=== PATIENT | female | born 1980 | race Asian ===

== ENCOUNTER 2018-01-01 07:18 | Emergency (ER) | payer MEDICAID ==
[~2018-01-01] VITALS: Ht 165.1 cm; Wt 80.0 kg
[2018-01-01 07:21] VITALS: BP 127/79
[2018-01-01] MEDS ORDERED: CEPH500C5 PO (07:27)
[2018-01-01] MEDS ORDERED: LEVO750T21 PO (07:29)
== END 2018-01-01 07:30 | disposition home or self-care (01) ==
LOC: ER 07:19
DX: L03.115 Cellulitis of right lower limb (principal); Z79.899 Other long term (current) drug therapy
CPT/HCPCS: 99283

== ENCOUNTER 2018-05-16 00:27 | Emergency (ER) | payer MEDICAID ==
[~2018-05-16] VITALS: Ht 571.8 cm; Wt 80.3 kg
[~2018-05-16 00:27] MED LIST: CEPH500C5 PO
[2018-05-16 00:41] VITALS: BP 135/91
[2018-05-16] MEDS ORDERED: IBUP-1986 PO (02:05)
[2018-05-16] MEDS ORDERED: SULF1TAB49 PO (02:05)
[2018-05-16] MEDS ORDERED: HYDR-569 PO (02:05)
[2018-05-16] MEDS ORDERED: CEPH500C5 PO (02:05)
== END 2018-05-16 02:13 | disposition home or self-care (01) ==
LOC: ER 00:28
DX: N75.0 Cyst of Bartholin's gland (principal); F17.200 Nicotine dependence, unspecified, uncomplicated
CPT/HCPCS: 99283

== ENCOUNTER 2019-10-19 19:30 | Emergency (ER) | payer MEDICAID ==
[~2019-10-19] VITALS: Ht 165.1 cm; Wt 65.0 kg
[~2019-10-19 19:30] MED LIST changes: -CEPH500C5 PO; +HYDR-4383 PO; +IBUP-1986 PO
[2019-10-19 19:33] VITALS: BP 142/84
[2019-10-20] MEDS ORDERED: BACDS PO (14:12)
[2019-10-20] MEDS ORDERED: CEPH250T PO (14:12)
== END 2019-10-19 21:48 | disposition left against medical advice (07) ==
LOC: ER 19:30
DX: S61.451A Open bite of right hand, initial encounter (principal); Z53.21 Procedure and treatment not carried out due to patient leaving prior to being seen by health care provider; X58.XXXA Exposure to other specified factors, initial encounter; Y93.89 Activity, other specified; Y92.89 Other specified places as the place of occurrence of the external cause; Y99.8 Other external cause status

== ENCOUNTER 2019-10-20 11:55 | Emergency (ER) | payer MEDICAID ==
[~2019-10-20] VITALS: Ht 165.1 cm; Wt 78.0 kg
[~2019-10-20 11:55] MED LIST changes: +LIDOcaine 1% W/epiNEPHrine 1:100,000 20ml vial ONE
[2019-10-20 12:04] VITALS: BP 122/91
--- NOTE | 2019-10-20 13:39 | NUR ---
PT STATES SHE FEELS LIKE HER RIGHT ARM IS TINGLY AND FEELING LIKE IT'S ASLEEP, MD AWARE. PT C/O FEELING COLD, WARM BLANKET PROVIDED.
[2019-10-20] MEDS ORDERED: BACDS PO (14:12)
[2019-10-20] MEDS ORDERED: CEPH250T PO (14:12)
== END 2019-10-20 14:37 | disposition home or self-care (01) ==
LOC: ER 11:56
DX: L02.511 Cutaneous abscess of right hand (principal); Z79.899 Other long term (current) drug therapy
CPT/HCPCS: 10060; 99283

== ENCOUNTER 2019-10-20 20:05 | Emergency (ER) | payer MEDICAID ==
[~2019-10-20] VITALS: Ht 165.1 cm; Wt 65.9 kg
[~2019-10-20 20:05] MED LIST changes: +BACDS PO; +CEPH250T PO; -LIDOcaine 1% W/epiNEPHrine 1:100,000 20ml vial ONE
[2019-10-20 20:23] VITALS: BP 139/91
[2019-10-20] MEDS ORDERED: CefTRIAXone 1000mg IM Kit (w/lidocaine diluent) IM ONE (23:10)
== END 2019-10-21 00:02 | disposition home or self-care (01) ==
LOC: ER 20:06
DX: S60.561D Insect bite (nonvenomous) of right hand, subsequent encounter (principal); L03.113 Cellulitis of right upper limb; L02.511 Cutaneous abscess of right hand; W57.XXXD Bitten or stung by nonvenomous insect and other nonvenomous arthropods, subsequent encounter; Z79.899 Other long term (current) drug therapy
CPT/HCPCS: 96372; 99283; J0696

== ENCOUNTER 2024-12-25 00:45 | Inpatient (IN) | payer MEDICAID ==
[~2024-12-25] VITALS: Ht 170.2 cm; Wt 83.3 kg
[~2024-12-25 00:45] MED LIST changes: -BACDS PO; -CEPH250T PO
[2024-12-25 01:27] LABS: BASOPHILS # (AUTO) 0.1 X10'3 (0-0.2); BASOPHILS % (AUTO) 0.5 % (0-1); EOSINOPHILS # (AUTO) 0.1 X10'3 (0-0.9); EOSINOPHILS % (AUTO) 0.9 % (0-6); HEMATOCRIT 38.7 % (35.0-45.0); HEMOGLOBIN 12.9 g/dl (12.0-16.0); LYMPHOCYTES # (AUTO) 1.9 X10'3 (1.1-4.8); MEAN CORPUSCULAR HEMOGLOBIN 26.1 PG (27.0-31.0); MEAN CORPUSCULAR HGB CONC 33.4 g/dL (33.0-36.5); MEAN PLATELET VOLUME 8.4 FL (7.4-10.4); MONOCYTES # (AUTO) 1.2 X10'3 (0-0.9); MONOCYTES % (AUTO) 7.7 % (2-12); NEUTROPHILS # (AUTO) 12.4 X10'3 (1.8-7.7); NEUTROPHILS % (AUTO) 78.9 % (42-75); PLATELET COUNT 305 X10'3 (140-440); RED BLOOD COUNT 4.96 X10'6 (4.20-5.60); RED CELL DISTRIBUTION WIDTH 16.6 % (11.5-14.5); WHITE BLOOD COUNT 15.7 X10'3 (4.5-11.0)
[2024-12-25 01:29] LABS: BILIRUBIN,URINE NEGATIVE (Neg); CLARITY,URINE CLOUDY (Clear); COLOR,URINE YELLOW (Yellow); GLUCOSE, URINE NEGATIVE (Neg); KETONES,URINE NEGATIVE (Neg); LEUKOCYTE ESTERASE ,URINE MODERATE (Neg); NITRITES, URINE POSITIVE (Neg); OCCULT BLOOD,URINE SMALL (Neg); PROTEIN,URINE 30 mg/dl (Neg); URINE HCG POSITIVE (NEG); UROBILINOGEN,URINE 0.2 E.U/dL (0.2-1.0)
[2024-12-25 01:37] LABS: ALANINE AMINOTRANSFERASE 35 U/L (12-78); ALBUMIN 3.7 G/DL (3.4-5.0); ALKALINE PHOSPHATASE 102 IU/L (46-116); ANION GAP 9 (8-16); ASPARTATE AMINO TRANSFERASE 16 U/L (10-37); BILIRUBIN,TOTAL 0.7 MG/DL (0.1-1.0); BLOOD UREA NITROGEN 10 MG/DL (7-18); BUN/CREATININE RATIO 13.5 (10.0-20.0); CALCIUM 8.2 MG/DL (8.5-10.1); CHLORIDE 104 MMOL/L (99-107); CREATININE 0.74 MG/DL (0.40-0.90); GLUCOSE 112 MG/DL (70-104); LIPASE 23 U/L (16-77); SODIUM 138 MMOL/L (135-145); TOTAL CARBON DIOXIDE 24.7 MMOL/L (24-32); TOTAL PROTEIN 7.5 G/DL (6.4-8.2); eCRCL 96 ML/MIN; eGFR 86 ML/MIN
[2024-12-25 01:38] LABS: UA COLLECTION TYPE CLN CATCH MIDSTREAM
[2024-12-25 01:40] LABS: BACTERIA,URINE 4+ /HPF (Neg); WBC,URINE TNTC /HPF (0-4)
[2024-12-25 01:41] LABS: MUCUS STRANDS FEW /LPF (Neg); SQUAMOUS EPITHELIAL CELL,UR FEW /LPF (FEW)
[2024-12-25] MEDS: acetaminophen 325mg tablet PO ONE (02:43)
[2024-12-25] MEDS: potassium CL 10mEq/100ml bag 100 ML IV ONE (02:45)
[2024-12-25] MEDS: normal saline 1000ML IV soln IVB ONE ×2 (02:46)
[2024-12-25] MEDS: magnesium sulf-water 2g/50mL 50 ML IV ONE (02:50)
[2024-12-25] MEDS: CefTRIAXone 2gm/D5W 50ml BAG 50 ML IV ONE (02:51)
[2024-12-25] MEDS: potassium Cl 20 mEq SR tablet PO ONE (02:53)
--- NOTE | 2024-12-25 03:06 | Physician Documentation ---
History of Present Illness Chief Complaint: Abdominal Pain Stated Complaint: ABDOMINAL PAIN Time Seen by MD: 02:35 OK to notify your PCP?: Yes Primary Medical Doctor: [facility] Source: patient Mode of Arrival: POV Exam Limitations: no limitations HPI 44 year old female, who is nine weeks with history of A1, presents complaining of mid lower abdominal pain that began two days ago. Pain has been worsening over this time and is now radiating to the left lower back. Pain is now constant and described like a hard contraction. She denies any nausea, vomiting, or urinary symptoms. She does feel hot currently. [facility], but has not actually been seen by them for this . Last Menstrual Period: Oct 27, 2024 Medication Reconciliation Allergies: Coded Allergies: No Known Allergies (Unverified , 12/25/24) Scheduled Ibuprofen (Ibuprofen), 1 TAB PO Q8H Scheduled PRN Hydrocodone/Acetaminophen (Fernley 5-325 Tablet), 1-2 TAB PO Q4HPRN PRN for pain Past Medical History Past Medical History: No Pertinent History Past Surgical History: no surgical history Last Menstrual Period: Oct 27, 2024 Alcohol Use: None Drug Use: none Lives with: Family Lives In: Home Review of Systems All Other Systems at this time: Reviewed and Negative ROS As stated above in the HPI, otherwise all systems are reviewed and negative. Physical Exam Vital Signs: RN Vital Signs have been reviewed: Yes, Temperature: 97.2, Source: Temporal, Heart Rate: 126, Respiratory Rate: 16, BP: 142/90, Pulse Oximetry: 96, Weight: 83.300 Oxygen Flow Rate: 0 Pulse Oximetry Reflects: adequate oxygenation Physical Exam General: The patient is well developed, well nourished, nontoxic appearing and is in mild distress. Uncomfortable appearing. Skin: [place], warm and dry with no rashes. HEENT: Head was normocephalic and atraumatic. Chest: Clear to auscultation bilaterally without wheezes, rales or rhonchi. No accessory muscle use. No dullness to percussion. Heart: Rate regular and rhythmic. S1, S2. No murmurs. Palpation of the chest wall was normal. No rubs or thrills. Abdomen: Mid lower abdominal tenderness. Gravid abdomen. Soft. Positive bowel sounds. No guarding or rebound. Back: Left CVA TTP, no right CVA TTP. Extremities: No cyanosis, clubbing or edema. The patient moves all extremities. Pulses were equal and symmetric. Neurologic: Motor and sensation grossly intact. Cranial nerves II-XII grossly intact. A & O x4. Psychologic: Normal mood and affect. No agitation. Progress Progress Note 0415: Initiating transfer process to facility with OB services. 0430: Case relayed to [facility] transfer center. 0535: Case discussed with [facility] OBGYN who reports patient's is nonviable and she can be admitted to this facility. 0542: Case discussed with internal medicine resident, who will consult his attending and call back if there are any issues. 0555: Case discussed with Dr. Kahn, teleintensivist, who agrees to evaluate for admission to the hospitalist service. Results/Orders Reviewed/noted all lab results: Yes Results/Orders Orders - VIMAL DE LOS SANTOS MD Straight Cath For Urine Sample (12/25/24 00:56) Cult Urine + [address] Ct (12/25/24 01:41) Culture Blood (12/25/24 02:35) Lacticsepsis (12/25/24 02:35) MG (12/25/24 02:35) Magnesium Sulf-Water 2g/50ml (Magnesium (12/25/24 02:35) Potassium Cl 10meq/100ml Bag (Potassium (12/25/24 02:35) Completed Orders - VIMAL DE LOS SANTOS MD Hcg, Ur Ql (12/25/24 00:56) Cbc/Diff (12/25/24 00:56) BMP (12/25/24 00:56) Lipase (12/25/24 00:56) CMP (12/25/24 00:56) Ua W/Microscopic, Cult If Ind (12/25/24 01:00) Normal Saline 1000ml (Sodium Chloride 10 (12/25/24 02:35) Acetaminophen 325mg Tablet (Tylenol Tabl (12/25/24 02:35) Potassium Cl Sr Tablet (K-Dur Tablet) (12/25/24 02:35) Normal Saline 1000ml (Sodium Chloride 10 (12/25/24 02:35) Ceftriaxone 2gm/D5w 50ml Bag (Rocephin 2 (12/25/24 02:35) Medications Received in ER Medications (Trade) Dose Ordered Sig/Jaclyn Route PRN Reason Start Time Stop Time Status Last Admin Dose Admin (sodium chloride 1000ml IV soln) 1,000 ml ONCE ONCE IVB 12/25/24 02:35 12/25/24 02:39 DC 12/25/24 02:46 1,000 ML (Tylenol tablet) 650 mg ONCE ONCE PO 12/25/24 02:35 12/25/24 02:39 DC 12/25/24 02:43 650 MG Magnesium Sulfate 50 ml @ 25 mls/hr ONCE ONCE IV 12/25/24 02:35 12/25/24 04:34 12/25/24 02:50 25 MLS/HR (K-DUR tablet) 20 meq ONCE ONCE PO 12/25/24 02:35 12/25/24 02:48 DC 12/25/24 02:53 20 MEQ Potassium Chloride 100 ml @ 100 mls/hr ONCE ONCE IV 12/25/24 02:35 12/25/24 03:34 12/25/24 02:53 100 MLS/HR Ceftriaxone Sodium/Dextrose 50 ml @ 100 mls/hr ONCE ONCE IV 12/25/24 02:35 12/25/24 03:04 DC 12/25/24 02:51 100 MLS/HR Vital Signs 12/25/24 12/25/24 00:48 01:10 Temp 97.2 Pulse 126 Resp 18 16 B/P (MAP) 142/90 Pulse Ox 96 O2 Flow Rate 0 Laboratory Tests Test 12/25/24 01:00 12/25/24 01:12 Urine Specimen Description Cln catch midstream Urine Color Yellow Urine Clarity Cloudy Urine pH 6.0 Urine Specific [place] 1.025 Urine Protein 30 H Urine Glucose (UA) Negative Urine Ketones Negative Urine Occult Blood Small Urine Nitrite Positive H Urine Bilirubin Negative Urine Urobilinogen 0.2 Urine Leukocyte Esterase Moderate H Urine RBC 3-10 Urine WBC Tntc H Urine Squamous Epithelial Cells Few Urine Bacteria 4+ Urine Mucus Few Urine Culture Indicated Indicated Volume Urine Centrifuged 10 ml Urine HCG, Qualitative Positive Urine Comment White Blood Count 15.7 H Red Blood Count 4.96 Hemoglobin 12.9 Hematocrit 38.7 Mean Corpuscular Volume 78.0 Mean Corpuscular Hemoglobin 26.1 L Mean Corpuscular Hemoglobin Concent 33.4 Red Cell Distribution Width 16.6 H Platelet Count 305 Mean Platelet Volume 8.4 Neutrophils (%) (Auto) 78.9 H Lymphocytes (%) (Auto) 12.0 L Monocytes (%) (Auto) 7.7 Eosinophils (%) (Auto) 0.9 Basophils (%) (Auto) 0.5 Neutrophils # (Auto) 12.4 H Lymphocytes # (Auto) 1.9 Monocytes # (Auto) 1.2 H Eosinophils # (Auto) 0.1 Basophils # (Auto) 0.1 CBC Comment Sodium Level 138 Potassium Level 3.0 *L Chloride Level 104 Carbon Dioxide Level 24.7 Anion Gap 9 Blood Urea Nitrogen 10 Creatinine 0.74 Estimated GFR/1.73 m2 86 BUN/Creatinine Ratio 13.5 Glucose Level 112 H Calcium Level 8.2 L Total Bilirubin 0.7 Aspartate Amino Transf (AST/SGOT) 16 Alanine Aminotransferase (ALT/SGPT) 35 Alkaline Phosphatase 102 Total Protein 7.5 Albumin 3.7 Globulin 3.8 Albumin/Globulin Ratio 1.0 L Lipase 23 Chemistry Comments Microbiology Date/Time Source Procedure Growth Status 12/25/24 01:41 Urine Clean Catch Midstream Urine Culture - Preliminary Culture received. Resulted Re-Evaluation Re-Evaluation : Re-Evaluation: Improved Progress Patient was seen and examined. Patient was given reassurance. Patient received IV fluids antibiotics pain meds. Patient is nine weeks patient was transferred to another facility but when presenting to OB the patient was dec lined. Initially was accepted at [place] but when presented to [facility] patient was declined. Patient is but it is with a nonviable therefore does not qualify for any transfer. At that point in time I then contacted our residents for admission. I admitted to the hospitalist service but through the attending. Later the hospitalist service requested that Dr. Robert De Los Santos be consulted. He will see the patient after 11:00 p.m. today. Sarahi hughes's laboratory work shows an elevated WBC at 15.7 without anemia and slight left shift of 78.9 neutrophils. Chemistry within normal limits lactic acid was reassuring at 1.8. Magnesium 2.1 potassium 3.0. Subsequent potassium was 3.3. Urinalysis shows specific gravity of 1.025 with positive leukocyte esterase and nitrates with TNTC WBCs consistent with a bad urinary infection in the context of . Patient was aggressively hydrated with 30 cc per kg as well as 2 g of Rocephin. Patient received Tylenol and later received morphine. Medically speaking the patient is doing much better. However initially she was not feeling well and had significant pain to palpation of her left flank. Continuous campus monitor interpretation shows sinus tachycardia heart rate 130s, abnormal, my interpretation. Pulse oximetry monitor interpretation shows normal oxygenation at 96% room air, normal, my interpretation. Medical Decision Making Additional info obtained from: old records (no prior admissions) Differential Dx:Considerations: Include: Appendicitis, Bowel obstruction, Cholangitis, Cholelithasis, Constipation, Diverticular disease, Gastritis/PUD, Gastroenteritis, GI hemorrhage, Hernia, Hepatitis, Inflammatory BD, Ischemic bowel, Ovarian cyst/torsion, Pancreatitis, PID, Urinary obstruction, Urinary tract infection, Urolithiasis, Other Departure Time of Disposition: 05:55 Disposition: 02 SHORT TERM HOSPITAL Impression: Primary Impression: Pyelonephritis Additional Impressions: First trimester Sepsis Qualified Codes: A41.9 - Sepsis, unspecified organism Condition: Guarded Referrals: NO PRIMARY CARE PROVIDER (PCP) Education Educated: Patient Educated regarding: diagnosis, prognosis, need for follow up, other Critical Care Note Total Time (mins): 90 Critical Care Note Critical Care Time: 90 minutes Treatments/Evaluations: Close monitoring and treatment of unstable vital signs, cardiorespiratory, and neurologic status, while maintaining tight balance of fluid, respiratory, and cardiac interventions. This time includes discussing the case with the patient and the patient's family. This time does not include all procedures stated elsewhere in this record. This time also includes reviewing old records, labs and radiological studies. This time includes examining and re-examining the patient. Additionally, this time also includes arranging care with admitting and consulting physicians. Signature Scribe Signature: Scribed for Vimal De Los Santos MD by Ping Son . 12/25/24 03:18 Attestation: The note accurately reflects work and decisions made by me.Vimal De Los Santos MD 12/25/24 03:05 VIMAL DE LOS SANTOS MD December 25, 2024 03:06 PING DESOUZA December 25, 2024 03:21
[2024-12-25 03:19] LABS: MAGNESIUM 2.1 MG/DL (1.5-2.4)
[2024-12-25] MEDS: morphine 4 MG/ML inj SYRINge IV ONE (04:18)
[2024-12-25] MEDS: normal saline 500ML IV soln IV ONE (04:25)
[2024-12-25] MEDS: morphine 2 MG/ML inj. syringe IV ONE (05:16)
[2024-12-25] MEDS ORDERED: magnesium sulf-water 4G/100mL 100 ML IV PRN (06:45)
[2024-12-25] MEDS ORDERED: magnesium sulf-water 2g/50mL 50 ML IV PRN (06:45)
[2024-12-25] MEDS ORDERED: magnesium Cl slow-release 64mg tablet PO PRN (06:45)
[2024-12-25] MEDS ORDERED: potassium Cl 40MEQ/1/2NS 520ml 520 ML IV PRN (06:45)
--- NOTE | 2024-12-25 07:04 | HISTORY AND PHYSICAL-Residence ---
History & Physical Providers to CC Resident Creating Document: DAVID LANDAVERDE, RES ~ History of Present Illness Primary Medical Doctor: [facility] Reason for Admit\Complaint: Acute pyelonephritis History of Present Illness 44-year-old female A1 presented to the ED with chief complaint of sudden onset crushing lower abdominal pain that began two days ago. She reported that the pain was initially daughter available but progressively got worse and radiated down into her groin and also radiated into the left flank. The patient's pain became intolerable and rated it nine on a scale of 10 and hence decided to present to the ER. She denied any other associated symptoms such as fever, chills, nausea, vomiting, burning micturition, other urinary symptoms such as urgency or frequency. The patient reports that she just found out that she was . She had an in 2023. She states her last successful was in 2022 and had a vaginal delivery. Allergies: Coded Allergies: No Known Allergies (Unverified , 12/25/24) Home Medications Home Medications Active Ibuprofen 800 Mg Tablet 1 Tab PO Q8H 10 Days [place] 5-325 Tablet (Hydrocodone/Acetaminophen) 1 Each Tablet 1-2 Tab PO Q4HPRN PRN Past Medical History Past Medical History A1 No other significant medical history Past Surgical History Surgical History Comment Denied any significant surgical history Past Social History Social History Comment Lives at home Smokes 1-2 cigarettes per day. Denies recreational drug use Alcohol Use: None Drug Use: None Lives with: Family Lives In: Home ROS All Other Systems: Reviewed and Negative ROS As stated above in the HPI, otherwise all systems are reviewed and negative. Exam Vitals: Vital Signs Date Time Temp Pulse Resp B/P (MAP) Pulse Ox O2 Delivery O2 Flow Rate FiO2 12/25/24 05:42 108 14 144/86 (105) 97 12/25/24 00:48 97.2 0 General: General: Awake and Alert, no acute distress. HEENT: Conjunctiva pink, Sclera clear, Mucus Membranes moist. Neck: Supple without masses and tenderness. Resp: Unlabored. Lungs clear to auscultation bilaterally. Heart: Regular Rate and rhythm, normal S1 and S2 without murmur, rub or gallop. Abdomen: Soft, distended. Tender on palpation in the lower mid and left iliac region. There is also significant tenderness on palpation of the left flank. Extremities: No cyanosis,clubbing or edema. Skin: Warm and Dry. Neurology: No focal motor or sensory deficits. Diagnostic Data Last Recorded Lab Results: 12/25/2411112/25/24111 Advance Care Planning Advanced Care planning: Add on additional 30 min Additional Plan Acute pyelonephritis Urine analysis is positive for nitrates, leukocyte esterase, too numerous to count WBCs and 4+ bacteria. Started the patient on IV ceftriaxone 2 g daily. Follow up with the urine cultures and blood cultures and manage antibiotics accordingly. Continue IV fluids for hydration and maintenance. Continue supportive care and management. A1 Gestational age nine weeks. Requested the ED physician Dr. De Los Santos to consult the gre tutor Dr. De Los Santos. Follow up as per the gre tutor recommendations. Hypokalemia Replace potassium. Continue to monitor electrolytes. CODE STATUS: Full code DVT prophylaxis: SCDs GI prophylaxis: None Diet: Regular David Landaverde MD Internal Medicine Resident, PGY-2 Attending Physician Attestation Evaluation via HIPAA compliant AV device. I discussed the case with the resident and I agree with the resident's documentation. 44-year-old woman now at 9 weeks who presents to the ED with 2 days of lower abdominal pain and is found on diagnostic evaluation to have evidence of a urinary tract infection. The treatment plan includes: Ceftriaxone antimicrobial therapy. IV hydration with isotonic crystalloid. UFH DVT prophylaxis. Time spent 50 minutes. Date of Service: December 25, 2024 Billing Provider: DESMOND SALVADOR MD, SURYA PRATIK, [facility] December 25, 2024 07:04 DESMOND SALVADOR MD December 25, 2024 07:29
[2024-12-25] MEDS: acetaminophen 325mg tablet PO PRN (07:42)
[2024-12-25] MEDS: normal saline 1000ml 1,000 ML IV SCH (07:42)
[2024-12-25] MEDS: K and/or MAG REPLACEMENT MC SCH (08:00)
[2024-12-25] MEDS: potassium Cl 20 mEq SR tablet PO PRN ×2 (09:45→21:45)
[2024-12-25 16:31] VITALS: BP 122/80; PULSE 107; RESP 20; TEMP 98.7; O2SAT 98
[2024-12-25 18:00] VITALS: BP 134/86; PULSE 107; RESP 19; TEMP 98.9; O2SAT 100
[2024-12-25 20:00] VITALS: RESP 19; O2SAT 100
[2024-12-25 22:00] VITALS: BP 124/80; PULSE 99; RESP 24; TEMP 97.9; O2SAT 98
[2024-12-26] MEDS: CefTRIAXone 2gm/D5W 50ml BAG 50 ML IV SCH (05:19)
[2024-12-26 05:42] LABS: BASOPHILS % (AUTO) 0.5 % (0-1); EOSINOPHILS # (AUTO) 0.2 X10'3 (0-0.9); EOSINOPHILS % (AUTO) 3.1 % (0-6); HEMATOCRIT 34.6 % (35.0-45.0); HEMOGLOBIN 11.5 g/dl (12.0-16.0); LYMPHOCYTES # (AUTO) 1.9 X10'3 (1.1-4.8); LYMPHOCYTES % (AUTO) 26.3 % (21-51); MEAN CORPUSCULAR HEMOGLOBIN 26.4 PG (27.0-31.0); MEAN CORPUSCULAR HGB CONC 33.3 g/dL (33.0-36.5); MEAN CORPUSCULAR VOLUME 79.4 FL (78-98); MEAN PLATELET VOLUME 8.8 FL (7.4-10.4); MONOCYTES # (AUTO) 0.6 X10'3 (0-0.9); MONOCYTES % (AUTO) 8.2 % (2-12); NEUTROPHILS # (AUTO) 4.5 X10'3 (1.8-7.7); NEUTROPHILS % (AUTO) 61.9 % (42-75); PLATELET COUNT 287 X10'3 (140-440); RED BLOOD COUNT 4.35 X10'6 (4.20-5.60); RED CELL DISTRIBUTION WIDTH 16.5 % (11.5-14.5); WHITE BLOOD COUNT 7.3 X10'3 (4.5-11.0)
[2024-12-26 06:08] LABS: ALANINE AMINOTRANSFERASE 24 U/L (12-78); ALBUMIN 2.9 G/DL (3.4-5.0); ALBUMIN/GLOBULIN RATIO 0.8 (1.1-1.5); ALKALINE PHOSPHATASE 88 IU/L (46-116); ANION GAP 7 (8-16); ASPARTATE AMINO TRANSFERASE 17 U/L (10-37); BILIRUBIN,TOTAL 0.5 MG/DL (0.1-1.0); BLOOD UREA NITROGEN 7 MG/DL (7-18); BUN/CREATININE RATIO 11.1 (10.0-20.0); CALCIUM 7.9 MG/DL (8.5-10.1); CHLORIDE 108 MMOL/L (99-107); CREATININE 0.63 MG/DL (0.40-0.90); GLUCOSE 97 MG/DL (70-104); POTASSIUM 3.5 MMOL/L (3.5-5.1); SODIUM 139 MMOL/L (135-145); TOTAL CARBON DIOXIDE 23.7 MMOL/L (24-32); TOTAL PROTEIN 6.4 G/DL (6.4-8.2); eCRCL 113 ML/MIN; eGFR > 90 ML/MIN
[2024-12-26 06:30] VITALS: BP 120/73; PULSE 96; RESP 24; TEMP 98.1; O2SAT 97
--- NOTE | 2024-12-26 06:59 | CONSULTATION ---
DATE OF CONSULTATION: 12/25/2024 DICTATING PHYSICIAN: Robert De Los Santos MD PHYSICIANS REQUESTING CONSULTATION: Vimal De Los Santos MD and Dav Johnson MD REASON FOR CONSULTATION: The patient was seen through the ER for left flank pain, diagnosed with pyelonephritis and noted to be in first trimester . HISTORY OF PRESENT ILLNESS: The patient is a 44-year-old 9 para 7 AB 1 at approximately 9 weeks' gestation by the patient's account, who presented to the Emergency Department with complaints of 3-day history of severe left lower quadrant pain, which subsequently radiated to the left flank. The patient, however, denies any dysuria, urge, or frequency. In addition, the patient denied fever or chills. PAST MEDICAL HISTORY: The patient denied any significant past medical history. Denies history of pelvic inflammatory disease or any pelvic infections. PAST SURGICAL HISTORY: None. CURRENT MEDICATIONS: As outpatient, none. ALLERGIES: No known drug allergies. PHYSICAL EXAMINATION: GENERAL: The patient is alert and oriented and in no acute distress. ABDOMEN: Obese, soft, nondistended. There is no significant left lower quadrant tenderness at this time, although the patient has received some pain medications. The patient's exam does reveal left costovertebral angle tenderness, which is quite prominent. No right CVA tenderness. My exam was limited to the area of interest at this time. LABORATORY FINDINGS: Her laboratory findings are significant for her white count at 15.7, hemoglobin is normal at 12.9, platelets of 305. Chemistry panel shows creatinine of 0.74. Urinalysis shows moderate leukocytes, innumerable white blood cells and positive for nitrites. Urine test is positive. ASSESSMENT: Symptoms are highly suspicious for pyelonephritis; however, her left lower quadrant pain which has improved cannot be fully explained by the patient's symptoms otherwise. In view of the patient's pain, it would be prudent to ascertain the location of the as an ectopic cannot be excluded at this time. PLAN: Continue IV antibiotics as prescribed with 2 grams of ceftriaxone IV daily. Followup the cultures and sensitivities. The patient should remain in-house until the pain on the left lower quadrant resolves along with the tenderness. The patient may then be discharged home with outpatient p.o. medications to complete a 14-day course. Follow up on ultrasound results for assessment of location of . Robert De Los Santos MD TID: [id number] RECEIPT: [id number] [place]
--- NOTE | 2024-12-26 07:57 | RADIOLOGY REPORT ---
OB ULTRASOUND <14 WEEKS: HISTORY: 9 WEEKS : ORDERED PREVIOUSLY, NOT DONE TECHNIQUE: Multiple real-time grayscale sonographic images of the pelvis with duplex Doppler color f low, spectral and M-mode analysis. TRANSDUCERS: Transabdominal and transvaginal COMPARISON: None FINDINGS: The uterus measures 9.4 x 5.4 x 7.2 cm The cervix is not visualized Right ovary measures 2.7 x 1.7 x 2.2 cm with normal Doppler color flow. Left ovary measures 2.1 x 1.0 x 1.0 cm with normal Doppler color flow. Left ovarian follicle measures 0.9 cm. Possible gestational sac in the uterus measures 0.49 cm. IMPRESSION: Possible Gestational sac within the uterus with no definite identifiable pole or yolk sac. Thi s may be inside outside sales representative of a blighted versus early . Correlation with follow-up be ta hCG levels. Follow-up ultrasound could be performed if clinically indicated.
[2024-12-26 08:00] VITALS: RESP 18
[2024-12-26 10:31] VITALS: BP 115/77; PULSE 99; RESP 16; TEMP 98.3; O2SAT 100
[2024-12-26] MEDS ORDERED: [UNRECOGNIZED DRUG - CODE] PO (11:37)
--- NOTE | 2024-12-26 11:41 | DISCHARGE SUMMARY ---
Discharge Summary Providers to Disregard this entry, not billable, thank you, ROBBIE Discharge Summary Assessment Okay Admission Diagnosis: Sepsis, pyelonephritis Hospital Course DATE OF ADMISSION: DATE OF DISCHARGE: Discharge Diagnosis\Comment: [employer]\Procedures: None Consultants: None Complications: None Condition on DC: Stable Discharge Summary: 44-year-old female A1 presented to the ED with chief complaint of sudden onset crushing lower abdominal pain that began two days ago. She reported that the pain was initially daughter available but progressively got worse and radiated down into her groin and also radiated into the left flank. The patient's pain became intolerable and rated it nine on a scale of 10 and hence decided to present to the ER. She denied any other associated symptoms such as fever, chills, nausea, vomiting, burning micturition, other urinary symptoms such as urgency or frequency. The patient reports that she just found out that she was . She had an in 2023. She states her last successful was in 2022 and had a vaginal delivery. Allergies: *Problems/Diagnosis: (1) Pyelonephritis Status: Acute Total Time Spent on D/C: > 30 Minutes Date of Service: December 26, 2024 Billing Provider: ERNESTO PALACIO MD Common Visit Codes: NOT BILLABLE ERNESTO PALACIO MD December 26, 2024 11:41
--- NOTE | 2024-12-26 18:23 | DISCHARGE SUMMARY ---
Discharge Summary Providers to No new complaint today, asking to be discharged home for emergency family reasons ~ Discharge Summary Assessment Acute pyelonephritis Intrauterine at nine weeks gestational age Hypokalemia Tobacco use Admission Diagnosis: Sepsis, pyelonephritis Admission Diagnosis Comment: Acute pyelonephritis Intrauterine at nine weeks gestational age Hypokalemia Tobacco use Hospital Course DATE OF ADMISSION: December 25, 2024 DATE OF DISCHARGE: December 26, 2024 Discharge Diagnosis\Comment: Acute pyelonephritis Intrauterine at nine weeks gestational age Hypokalemia Tobacco use Operations\Procedures: None Consultants: None Complications: None Condition on DC: Stable Discharge Summary: 44-year-old female A1 presented to the ED with chief complaint of sudden onset crushing lower abdominal pain that began two days ago. She reported that the pain was initially daughter available but progressively got worse and radiated down into her groin and also radiated into the left flank. The patient's pain became intolerable and rated it nine on a scale of 10 and hence decided to present to the ER. She denied any other associated symptoms such as fever, chills, nausea, vomiting, burning micturition, other urinary symptoms such as urgency or frequency. The patient reports that she just found out that she was . She had an in 2023. She states her last successful was in 2022 and had a vaginal delivery. After admission patient was extensively evaluated and treated, she feels better today asking to be discharged for emergency family reasons, I explained to the patient to continue treatment but he elected to be discharged. Risk of severe complications and including to the fetus, explained, she will be discharged in stable condition, medication reconciled, recommended to return to emergency department if condition worsens, or if patient change her mind, follow-up PCP in the morning, today on physical exam Vital signs, stable ,afebrile. Pulse Oximetry reflects adequate oxygenation. General: well developed, well nourished. Awake , alert, and oriented x4, resting comfortably in the bed, in no acute distress . Skin: Warm, dry, no pallor, no rash or petechiae. HEENT: Atraumatic, normocephalic, EOMI, anicteric sclera B; pink conjunctiva; PERRLA, normal oropharynx, moist oral and nasal mucosa. Tympanic membrane , nose , throat clear. Neck: Trachea midline. Supple, full range of motion, no JVD, bruit , hepatojugular reflex , lymphadenopathy or masses, or other lesions Cardiac: Regular rhythm, regular rate no murmurs, rubs, or gallops. Normal S1 and S2, no S3 noticed. PMI is normal. Respiratory: Equal breath sounds bilaterally, no tachypnea; lungs clear to auscultation bilaterally, no wheezing ,rub or rales, or crackles. Chest wall is symmetric and without deformity. No signs of trauma. Chest wall is nontender. No signs of respiratory distress. Resonance is normal upon percussion bilaterally. Gastrointestinal: Abdomen symmetric, non-distended, soft, non-tender, normal bowel sounds x4 quadrant, normoactive, no hepatosplenomegaly , no masses , no bruit, no flank pain bilaterally. No voluntary guarding, rebound, or rigidity. No tenderness to percussion. No pulsatile masses. Equal femoral pulses. No Nair's sign or McBurney point tenderness. Back; no CVA tenderness bilaterally, no deformities. Neck and back are without deformity as well. No tenderness noted on palpation of the spinous processes. Spinous processes are midline. Cervical, thoracic, and lumbar paraspinal muscles are not tender and are without spasm. Musculoskeletal: Extremities, normal range of motion, non-tender, muscle strength 5/5 x 4. Negative Homans signs bilaterally on lower extremity. Distal pulses full symmetrical, no clubbing, cyanosis , edema. Neurological: Speech is clear, alert, and oriented x 4. No motor or sensory deficit, deep tendon reflexes normal, cerebellar intact. Cranial nerves II-XII intact. Psych: Alert and or appropriate, normal affect. Vascular: Good distal pulses, which are equal x4; capillary refill less than 2 seconds. Lymphatic, no lymphadenopathy. *Problems/Diagnosis: (1) Pyelonephritis Status: Acute Total Time Spent on D/C: > 30 Minutes Counseling Services Smoking & Tobacco Cessation: 3-10 Minutes Date of Service: December 26, 2024 Billing Provider: ERNESTO PALACIO MD Common Visit Codes: 64987-HFB/OBS DISCH DAY >30min ERNESTO PALACIO MD December 26, 2024 18:23
== END 2024-12-26 12:44 | disposition home or self-care (01) | DRG 566 ==
LOC: ER 00:46 → ED HOLD 06:52 → UNDOADMIN 06:52 → ED HOLD 08:49 → SUR 3N 15:49 → UNDODISIN 12-26 12:44
PROVIDERS: ADMIT Internal Medicine Critical Care Medicine; ATTEND Family Medicine
DX: O98.811 Other maternal infectious and parasitic diseases complicating pregnancy, first trimester (principal); A41.9 Sepsis, unspecified organism; N10 Acute pyelonephritis; O23.31 Infections of other parts of urinary tract in pregnancy, first trimester; E87.6 Hypokalemia; Z3A.09 9 weeks gestation of pregnancy; O99.281 Endocrine, nutritional and metabolic diseases complicating pregnancy, first trimester; N39.0 Urinary tract infection, site not specified
CPT/HCPCS: 36415; 76801; 80053; 81001; 81025; 83605; 83690; 83735; 84132; 85025; 87040; 87077; 87081; 87088; 87186; 99291; 99292; G0378; J0696; J2270; J3480; J7030; J7040